=== PATIENT | female | born 1990 | race Caucasian/White ===

== ENCOUNTER → 2016-09-26 | Day surgery (SDC) | payer OTHER | LOC: RAD 13:41 → EDSTATUS 14:00 | PROVIDERS: ATTEND Orthopaedic Surgery Sports Medicine | PROC: BQ00ZZZ Plain Radiography of Right Hip (ICD-10-PCS; principal; 2016-09-26) | DX: M25.551 Pain in right hip (principal) | CPT/HCPCS: 73722; 73525; 77002; A9576 ==